=== PATIENT | female | born 1990 | race Caucasian/White ===

== ENCOUNTER 2017-10-07 12:29 | Emergency (ER) | payer OTHER ==
[~2017-10-07] VITALS: Ht 157.5 cm; Wt 52.2 kg
[2017-10-07] MEDS ORDERED: ACYCLOVIR 400400 MG PO (13:41)
[2017-10-07] MEDS ORDERED: IBUPROFEN 800800 M1 PO (13:41)
[2017-10-07] MEDS ORDERED: MAGIC MOUTHWASH SWISH&SPIT (13:41)
== END 2017-10-07 14:00 | disposition home or self-care (01) ==
LOC: ER 12:29
DX: K12.1 Other forms of stomatitis (principal)

== ENCOUNTER → 2020-11-26 | Outpatient (CLI) | payer OTHER ==
[~2020-11-26] MED LIST: ACYCLOVIR 400400 MG PO; IBUPROFEN 800800 M1 PO; MAGIC MOUTHWASH SWISH&SPIT
== END ==
LOC: LAB 10:20
PROVIDERS: ATTEND Family Medicine
DX: E03.9 Hypothyroidism, unspecified (principal)